=== PATIENT | male | born 1985 | race Caucasian/White ===

== ENCOUNTER 2021-09-20 14:20 | Outpatient (REF) | payer OTHER, SELFPAY ==
[2021-09-20 17:59] LABS: MANUAL DIFF FLAG NO
[2021-09-20 18:09] LABS: Basophils Absolute Auto 0.1 X10*3/uL (0.0-0.2); Basophils Percent Auto 1.3 % (0-2); Eosinophils Absolute Auto 0.3 X10*3/uL (0.0-0.4); Eosinophils Percent Auto 3.8 % (0-4); Hematocrit 47.3 % (42.0-52.0); Hemoglobin 16.3 g/dl (14.0-18.0); Imm Gran Abs Auto 0.04 X10*3/uL (0.00-0.03); Imm Gran Pct Auto 0.5 % (0.0-0.4); Lymphocytes Percent Auto 24.1 % (20-40); Mean Corpuscular HGB Conc 34.5 g/dl (31.0-36.0); Mean Corpuscular Hemoglobin 31.3 pg (27.0-33.0); Mean Platelet Volume 9.9 fL (9.4-12.4); Monocytes Absolute Auto 0.7 X10*3/uL (0.1-1.2); Monocytes Percent Auto 8.3 % (2-11); Neutrophils Absolute Auto 5.1 x10*3/uL (2.0-8.3); Platelet Count 368 X10*3/uL (160-400); Red Cell Distribution Width 12.8 % (11.0-16.0); White Blood Count 8.2 X10*3/uL (4.8-10.8)
[2021-09-20 18:19] LABS: Alanine Aminotransferase 45 U/L (0-40); Albumin Level 4.8 g/dL (3.5-5.0); Alkaline Phosphatase 55 U/L (39-117); Anion Gap 15 (12-20); Aspartate Amino Transferase 23 U/L (5-37); Bilirubin Total 0.5 mg/dL (0.0-1.0); Blood Urea Nitrogen 14 mg/dL (9-16); Calcium 9.8 mg/dL (8.4-10.2); Carbon Dioxide 23 mmol/L (22-29); Chloride 108 mmol/L (96-108); Estimated Glomerular Filt Rate > 60; Glucose Random 114 mg/dL (60-115); Potassium 4.3 mmol/L (3.3-5.1); Sodium 142 mmol/L (135-145); Total Protein 7.8 g/dL (6.5-8.0)
[2021-09-25 17:41] LABS: Testosterone, Free 55.6 pg/mL (35.0-155.0); Testosterone, Total 247 ng/dL (250-1100)
== END 2021-09-20 14:21 | disposition home or self-care (01) ==
LOC: HO.MANLDS 14:20
PROVIDERS: Visit Provider Physician Assistant
DX: Z00.00 Encounter for general adult medical examination without abnormal findings (principal)
CPT/HCPCS: 36415; 80053; 84402; 84403; 85025

== ENCOUNTER 2021-10-11 09:49 | Outpatient (REF) | payer OTHER, SELFPAY ==
[2021-10-19 11:37] LABS: Testosterone, Free 67.6 pg/mL (35.0-155.0); Testosterone, Total 350 ng/dL (250-1100)
== END 2021-10-11 09:50 | disposition home or self-care (01) ==
LOC: HO.MANLDS 09:49
PROVIDERS: Visit Provider Physician Assistant
DX: R79.89 Other specified abnormal findings of blood chemistry (principal)
CPT/HCPCS: 36415; 84402; 84403